=== PATIENT | female | born 1985 | race African-American/Black ===

== ENCOUNTER 2022-11-04 15:03 | Emergency (ER) | payer BC ==
[~2022-11-04] VITALS: Ht 165 cm; Wt 138.0 kg
[2022-11-04 15:23] LABS: BILIRUBIN,URINE NEGATIVE (NEGATIVE); CLARITY,URINE CLOUDY; COLOR,URINE ORANGE; GLUCOSE, URINE (UA) TRACE (NEGATIVE); KETONES,URINE NEGATIVE (NEGATIVE); LEUKOCYTE ESTERASE ,URINE NEGATIVE (NEGATIVE); NITRITE,URINE POSITIVE (NEGATIVE); PH,URINE 6.5 (5-9); PROTEIN,URINE NEGATIVE (NEGATIVE)
[2022-11-04 15:36] LABS: BACTERIA,URINE LARGE /HPF
--- NOTE | 2022-11-04 15:56 | ED Abdominal Pain ---
General Chief Complaint: General Problems/Pain Stated Complaint: ABD PAIN | POSSIBLE UTI | INSECT BITE Nursing Triage Note: AMBULATED TO ROOM 03 WITHOUT DIFFICULTY. COMPLAINS OF LOW BACK PAIN, NAUSEA AND PAINFUL URINATION STARTING X2 WEEKS AGO. ALSO COMPLAINS OF A BUG BITE TO RIGHT ARM 3-4 DAYS AGO. Source of Information: Patient Exam Limitations: No Limitations History of Present Illness Date Seen by Provider: Nov 04, 2022 Time Seen by Provider: 15:10 Initial Comments 37-year-old female presents to the ER for several complaints. She states that she thinks she has a UTI, complains of burning with urination, lower back pain, abdominal pain, and nausea. She states that her abdominal pain is in the epigastric region. She states that yesterday she had multiple episodes of diarrhea. Denies hematuria. Thnks her last menstrual cycle was October 15. She states that on last 11/27/2022 she felt something crawling on her and then felt a bite and noticed a small area that looked like a mosquito bite on her right medial upper arm. She states that the area around the bite became red and painful. States that it felt hard to touch. Denies any drainage. She denies pulling a tick from the wound. She reports that yesterday she had a stiff neck. Denies fevers. Does report headaches since the bug bite. Allergies and Home Medications Allergies Coded Allergies: aspirin (Verified Adverse Reaction, Unknown, GASTRITIS, 11/04/22) ibuprofen (Verified Adverse Reaction, Unknown, GASTRITIS, 11/04/22) Patient Home Medication List Home Medication List Reviewed: Yes Cephalexin (Cephalexin) 500 Mg Tablet, 500 MG PO QID Prescribed by: Susannah Pacheco on 11/04/221658 Tramadol HCl (Tramadol HCl) 50 Mg Tablet, 50 MG PO Q4H PRN for PAIN Prescribed by: Susannah Pacheco on 11/04/22 165 Review of Systems Review of Systems Constitutional: see HPI Past Llwoqod-Vashxj-Xkugbg Hx Patient Social History Tobacco Use?: No Substance use?: Yes Substance type: Marijuana Alcohol Use?: No Past Medical History Expected Date of Delivery: October 15, 2022 Physical Exam Vital Signs Vital Signs - First Documented 11/04/22 15:10 Temp 34.5 Pulse 104 Resp 16 B/P (MAP) 139/95 (110) Pulse Ox 100 O2 Delivery Room Air Capillary Refill : Less Than 3 Seconds Height/Weight/BMI Height: '" Weight: lbs. oz. kg; 50.00 BMI Method: General Appearance: WD/WN, no apparent distress Neck: supple, normal inspection Respiratory: lungs clear, normal breath sounds, no respiratory distress, no accessory muscle use Cardiovascular: regular rate, rhythm Gastrointestinal: normal bowel sounds, soft, tenderness (epigastric region) Extremities: normal range of motion Neurologic/Psychiatric: alert, normal mood/affect Skin: normal color, warm/dry, other (Small wound noted to right medial upper arm surrounded by area of erythema, no induration or fluctuation. Very tender to touch) Progress/Results/Core Measures Results/Orders Lab Results Laboratory Tests Test 11/04/22 15:20 11/04/22 15:55 Range/Units Urine Color ORANGE Urine Clarity CLOUDY Urine pH 6.5 5-9 Urine Specific [place] 1.025 H 1.016-1.022 Urine Protein NEGATIVE NEGATIVE Urine Glucose (UA) TRACE H NEGATIVE Urine Ketones NEGATIVE NEGATIVE Urine Nitrite POSITIVE H NEGATIVE Urine Bilirubin NEGATIVE NEGATIVE Urine Urobilinogen 0.2 < = 1.0 MG/DL Urine Leukocyte Esterase NEGATIVE NEGATIVE Urine RBC (Auto) NEGATIVE NEGATIVE Urine RBC NONE /HPF Urine WBC 2-5 /HPF Urine Squamous Epithelial Cells 2-5 /HPF Urine Crystals NONE /LPF Urine Bacteria LARGE H /HPF Urine Casts NONE /LPF Urine Mucus NEGATIVE /LPF Urine Culture Indicated YES White Blood Count 6.1 4.3-11.0 10^3/uL Red Blood Count 4.95 3.80-5.11 10^6/uL Hemoglobin 13.8 11.5-16.0 g/dL Hematocrit 43 35-52 % Mean Corpuscular Volume 88 80-99 fL Mean Corpuscular Hemoglobin 28 25-34 pg Mean Corpuscular Hemoglobin Concent 32 32-36 g/dL Red Cell Distribution Width 13.8 10.0-14.5 % Platelet Count 220 130-400 10^3/uL Mean Platelet Volume 11.4 9.0-12.2 fL Immature Granulocyte % (Auto) 0 % Neutrophils (%) (Auto) 53 42-75 % Lymphocytes (%) (Auto) 34 12-44 % Monocytes (%) (Auto) 8 0-12 % Eosinophils (%) (Auto) 4 0-10 % Basophils (%) (Auto) 1 0-10 % Neutrophils # (Auto) 3.2 1.8-7.8 X 10^3 Lymphocytes # (Auto) 2.1 1.0-4.0 X 10^3 Monocytes # (Auto) 0.5 0.0-1.0 X 10^3 Eosinophils # (Auto) 0.2 0.0-0.3 10^3/uL Basophils # (Auto) 0.1 0.0-0.1 10^3/uL Immature Granulocyte # (Auto) 0.0 0.0-0.1 10^3/uL Sodium Level 137 135-145 MMOL/L Potassium Level 4.4 3.6-5.0 MMOL/L Chloride Level 106 98-107 MMOL/L Carbon Dioxide Level 20 L 21-32 MMOL/L Anion Gap 11 5-14 MMOL/L Blood Urea Nitrogen 9 7-18 MG/DL Creatinine 0.82 0.60-1.30 MG/DL Estimat Glomerular Filtration Rate 95 BUN/Creatinine Ratio 11 Glucose Level 118 H 70-105 MG/DL Calcium Level 9.9 8.5-10.1 MG/DL Corrected Calcium 9.8 8.5-10.1 MG/DL Total Bilirubin 0.4 0.1-1.0 MG/DL Aspartate Amino Transf (AST/SGOT) 23 5-34 U/L Alanine Aminotransferase (ALT/SGPT) 26 0-55 U/L Alkaline Phosphatase 88 40-136 U/L C-Reactive Protein High Sensitivity 0.84 H 0.00-0.50 MG/DL Total Protein 8.9 H 6.4-8.2 GM/DL Albumin 4.1 3.2-4.5 GM/DL Amylase Level 264 H 25-125 U/L Lipase 36 8-78 U/L My Orders Orders - SUSANNAH PACHECO [employer]IST Ua Culture If Indicated (11/04/22 15:10) Urine Bedside (11/04/22 15:10) Urine Culture (11/04/22 15:20) Comprehensive Metabolic Panel (11/04/22 15:43) Lipase (11/04/22 15:43) Amylase (11/04/22 15:43) Cbc With Automated Diff (11/04/22 15:43) Hs C Reactive Protein (11/04/22 15:43) Lidocaine 2% Viscous 15 Ml (Xylocaine Vi (11/04/22 16:00) Antacid Suspension (Mylanta Suspension (11/04/22 16:00) Ketorolac Injection (Toradol Injection) (11/04/22 16:00) Tramadol Tablet (Ultram Tablet) (11/04/22 16:45) Cephalexin Capsule (Keflex Capsule) (11/04/22 17:00) Medications Given in ED Current Medications Medications Dose Ordered Sig/Sushma Route Start Time Stop Time Status Last Admin Dose Admin Al Hydrox/Mg Hydrox/Simethicone 30 ml ONCE ONCE PO 11/04/22 16:00 11/04/22 16:01 DC 11/04/22 16:01 30 ML Cephalexin HCl 500 mg ONCE ONCE PO 11/04/22 17:00 11/04/22 17:01 DC 11/04/22 17:00 500 MG Ketorolac Tromethamine 15 mg ONCE ONCE IM 11/04/22 16:00 11/04/22 16:01 DC 11/04/22 16:01 15 MG Lidocaine HCl 15 ml ONCE ONCE PO 11/04/22 16:00 11/04/22 16:01 DC 11/04/22 16:01 15 ML Tramadol HCl 50 mg ONCE ONCE PO 11/04/22 16:45 11/04/22 16:46 DC 11/04/22 17:00 50 MG Vital Signs/I&O 11/04/22 11/04/22 15:10 17:06 Temp 34.5 Pulse 104 81 Resp 16 16 B/P (MAP) 139/95 (110) 146/85 Pulse Ox 100 100 O2 Delivery Room Air Room Air Blood Pressure Mean: 110 Progress Progress Note : Progress Note Patient seen and evaluated, resting comfortably in bed, no acute distress. Based on exam and symptoms, work-up initiated including CBC, CMP, amylase, lipase, CRP, UA, urine . Toradol and GI cocktail ordered. 1655 Labs reviewed. CBC grossly normal. CMP shows slightly decreased CO2 20, glucose 118. CRP 0.84. Amylase elevated to 64, lipase normal. I do not think this is pancreatitis as lipase is normal. UA shows trace glucose, positive nitrites, negative leukocytes, 2-5 WBCs, 2-5 S, Kaylynn cells, large bacteria. Patient reports upper abdominal pain has improved. She still complaining of pain in her right arm. Tramadol ordered. Will treat for cellulitis and UTI with Keflex. First dose ordered for here. Upper abdominal pain is likely related to gastric reflux or gastritis since GI cocktail helped the pain. Will discharge with instructions to start taking omeprazole, patient states that her doctor used to have her on omeprazole. Patient instructed to take Tums until omeprazole starts working. Instructed to get Azo [id number] for UTI pain. Will discharge with short prescription for tramadol as well. Patient agreeable to discharge plan. Discharge instructions and return precautions provided. Departure Impression Primary Impression: UTI (urinary tract infection) Qualified Codes: N30.00 - Acute cystitis without hematuria Additional Impressions: Gastritis Qualified Codes: K29.00 - Acute gastritis without bleeding Cellulitis Qualified Codes: L03.113 - Cellulitis of right upper limb Disposition: 01 HOME, SELF-CARE Condition: Stable Departure-Patient Inst. Decision time for Depature: 16:55 Referrals: NO,LOCAL PHYSICIAN (PCP/Family) Primary Care Physician Patient Instructions: Urinary Tract Infection, Adult (DC), Cellulitis (Skin Infection), Adult (DC), Gastritis Add. Discharge Instructions: Complete full course of antibiotic as directed. Obtain [id number] 6-week course of omeprazole. Omeprazole takes a little while to start working, you may take Tums in the meantime. You can get Azo [id number] to take for your UTI pain. Return to the ER if the redness increases in size, you develop a fever, or any other new, concerning, or worsening symptoms. All discharge instructions reviewed with patient and/or family. Voiced understanding. Scripts Tramadol HCl (Tramadol HCl) 50 Mg Tablet 50 MG PO Q4H PRN for PAIN, #10 TAB 0 Refills Prov: SUSANNAH PACHECO APRN 11/04/22 Cephalexin (Cephalexin) 500 Mg Tablet 500 MG PO QID for 7 Days, #28 TAB 0 Refills Prov: SUSANNAH PACHECO APRN 11/04/22 Work/School Note: Work Release Form Date Seen in the Emergency Department: Nov 04, 2022 Return to Work: Nov 05, 2022 Restrictions: No Restrictions SUSANNAH PACHECO APRN Nov 04, 2022 15:56
[2022-11-04] MEDS ORDERED: KETOROLAC 15 MG/ML VIAL IM ONE (16:00)
[2022-11-04] MEDS ORDERED: ANTACID SUSP 30 ML UDC (MYLANTA) PO ONE (16:00)
[2022-11-04] MEDS ORDERED: KETOROLAC 15 MG/ML VIAL IVP ONE (16:00)
[2022-11-04] MEDS ORDERED: LIDOCAINE 2% VISCOUS 15 ML UDC PO ONE (16:00)
[2022-11-04 16:05] LABS: BASOPHILS # (AUTO) 0.1 10^3/uL (0.0-0.1); BASOPHILS % (AUTO) 1 % (0-10); EOSINOPHILS # (AUTO) 0.2 10^3/uL (0.0-0.3); EOSINOPHILS % (AUTO) 4 % (0-10); HEMATOCRIT 43 % (35-52); HEMOGLOBIN 13.8 g/dL (11.5-16.0); LYMPHOCYTES # (AUTO) 2.1 X 10^3 (1.0-4.0); LYMPHOCYTES % (AUTO) 34 % (12-44); MEAN CORPUSCULAR HEMOGLOBIN 28 pg (25-34); MEAN CORPUSCULAR HGB CONC 32 g/dL (32-36); MEAN CORPUSCULAR VOLUME 88 fL (80-99); MEAN PLATELET VOLUME 11.4 fL (9.0-12.2); MONOCYTES # (AUTO) 0.5 X 10^3 (0.0-1.0); MONOCYTES % (AUTO) 8 % (0-12); NEUTROPHILS # (AUTO) 3.2 X 10^3 (1.8-7.8); NEUTROPHILS % (AUTO) 53 % (42-75); PLATELET COUNT 220 10^3/uL (130-400); WHITE BLOOD COUNT 6.1 10^3/uL (4.3-11.0)
[2022-11-04 16:16] LABS: ALBUMIN 4.1 GM/DL (3.2-4.5); POTASSIUM 4.4 MMOL/L (3.6-5.0)
[2022-11-04 16:18] LABS: CALCIUM 9.9 MG/DL (8.5-10.1)
[2022-11-04 16:19] LABS: TOTAL PROTEIN 8.9 GM/DL (6.4-8.2)
[2022-11-04 16:21] LABS: BILIRUBIN,TOTAL 0.4 MG/DL (0.1-1.0)
[2022-11-04 16:22] LABS: CREATININE SERUM 0.82 MG/DL (0.60-1.30)
[2022-11-04] MEDS ORDERED: CEPH500T PO (16:59)
[2022-11-04] MEDS ORDERED: TRM50T PO (16:59)
[2022-11-04] MEDS ORDERED: CEPHALEXIN 250 MG (KEFLEX) CAP PO ONE (17:00)
[2022-11-04] MEDS ORDERED: TRIM/SULFAMETH 160/800 (SEPTRA DS) TAB PO ONE (17:00)
[2022-11-04 17:06] VITALS: BP 146/85
== END 2022-11-04 17:04 | disposition home or self-care (01) ==
LOC: ER 15:07
DX: N39.0 Urinary tract infection, site not specified (principal); K29.70 Gastritis, unspecified, without bleeding; L03.113 Cellulitis of right upper limb; R74.8 Abnormal levels of other serum enzymes; Z88.6 Allergy status to analgesic agent
CPT/HCPCS: 36415; 80053; 81000; 82150; 83690; 84703; 85025; 86141; 87077; 87088; 87186; 99283

== ENCOUNTER → 2022-12-05 | Outpatient (CLI) | payer BC ==
[~2022-12-05] MED LIST: CEPH500T PO; TRM50T PO
[2022-12-05 10:25] LABS: BASOPHILS # (AUTO) 0.1 10^3/uL (0.0-0.1); BASOPHILS % (AUTO) 1 % (0-10); EOSINOPHILS # (AUTO) 0.2 10^3/uL (0.0-0.3); EOSINOPHILS % (AUTO) 3 % (0-10); HEMATOCRIT 39 % (35-52); HEMOGLOBIN 12.8 g/dL (11.5-16.0); LYMPHOCYTES # (AUTO) 3.1 10^3/uL (1.0-4.0); LYMPHOCYTES % (AUTO) 38 % (12-44); MEAN CORPUSCULAR HEMOGLOBIN 28 pg (25-34); MEAN CORPUSCULAR HGB CONC 33 g/dL (32-36); MEAN CORPUSCULAR VOLUME 85 fL (80-99); MEAN PLATELET VOLUME 10.5 fL (9.0-12.2); MONOCYTES # (AUTO) 0.5 10^3/uL (0.0-1.0); MONOCYTES % (AUTO) 7 % (0-12); NEUTROPHILS # (AUTO) 4.3 10^3/uL (1.8-7.8); NEUTROPHILS % (AUTO) 52 % (42-75); PLATELET COUNT 266 10^3/uL (130-400); WHITE BLOOD COUNT 8.2 10^3/uL (4.3-11.0)
[2022-12-05 10:49] LABS: ALBUMIN 3.7 GM/DL (3.2-4.5); BILIRUBIN,TOTAL 0.3 MG/DL (0.1-1.0); CALCIUM 9.3 MG/DL (8.5-10.1); CREATININE SERUM 0.77 MG/DL (0.60-1.30); POTASSIUM 3.9 MMOL/L (3.6-5.0); TOTAL PROTEIN 7.4 GM/DL (6.4-8.2)
[2022-12-05 11:10] LABS: FREE T4 (FREE THYROXINE) 0.86 NG/DL (0.70-1.48)
--- NOTE | 2022-12-05 11:41 | Diagnostic Imaging Report ---
EXAMINATION: Chest 2 view HISTORY: COUGH COMPARISON: None available. FINDINGS: Heart size and pulmonary vasculature are normal. The lungs are clear without consolidation, pleural effusion, or pneumothorax. The osseous structures are intact. IMPRESSION: 1. No acute radiographic abnormality in the chest. Dictated by: Dictated on workstation # [id number]
== END ==
LOC: LAB 09:52
PROVIDERS: ATTEND Family Medicine
DX: Z00.00 Encounter for general adult medical examination without abnormal findings (principal); R05.9 Cough, unspecified
CPT/HCPCS: 36415; 71046; 80053; 83036; 84439; 84443; 85025